=== PATIENT | female | born 1970 | race Caucasian/White ===

== ENCOUNTER 2024-11-19 11:01 | Emergency (ER) | payer SELFPAY ==
[2024-11-19 11:06] VITALS: BP 170/124
--- NOTE | 2024-11-19 11:26 | ED.GENMED ---
History of Present Illness
General
Chief Complaint: Alcohol Problem
Source: patient
Exam Limitations: none
Time Seen by Provider: 11/19/24 11:13
Nursing documentation reviewed up to this point in time: agreed with
History of Present Illness
History of Present Illness:
54-year-old female with cirrhosis, ascite, Upper GI bleed presents to the ED brought by Police for DUI. per protocol from Police pt was brought here due to very high alcohol level. Breathalyzer from place showed a 0.464
Patient arrives awake alert she appears mildly intoxicated but is able to give history. She is aware and admits to driving under the influence of alcohol. She was driving to work. She is tearful and upset that she was arrested. She has no
physical complaints
Past History
Past History
ED Past Medical History: HTN, Psychiatric (depression) and Other (Alcohol abuse, anemia, dysfunctional uterine bleeding)
ED Past Surgical History: Appendectomy, and Orthopedic (Left wrist)
Social History
Tobacco: Non-smoker
Alcohol: Chronic alcoholic
Drug: None
Personal:
Living: with roommate
Employment: Employed
Family History
Family History: Other (Noncontributory)
Review of Systems
Review of Systems
Allergies reviewed?: Yes
All Other Systems: ROS reviewed and negative except as documented in HPI and ROS
Constitutional: Reports no symptoms; Denies fever, fatigue or chills
Respiratory: Reports no symptoms
Cardiac: Reports no symptoms
ABD/GI: Reports no symptoms
Musculoskeletal: Reports no symptoms
Skin: Reports no symptoms
Neurological: Reports no symptoms
Psychiatric: Reports no symptoms
Phy Exam
General Physical Exam
General Presentation: no apparent distress
General age: appears stated age
General Skin: warm and dry
General Habitus: normal
General Mental: appears intoxicated
Cardiovascular Exam
Cardiovascular Exam: tachycardia
Pulmonary Exam
Pulmonary Exam: lungs clear and no respiratory distress
Neurological Exam
Neurological Exam: alert and oriented x3
Musculoskeletal Exam
Musculoskeletal Exam: full ROM
Skin Exam
Skin Exam: normal color and warm/dry
Psychiatric Exam
Psychiatric Exam: normal mood/affect
Scores
Withdrawal Assessment of Alcohol
Withdrawal Assessment Completed?: Not applicable
Course
Vital Signs
Initial and Last Documented VS:
Initial Vital Signs
Temp Pulse Resp BP Pulse Ox
98.6 F 114 17 170/124 99
11/19/24 11:06 11/19/24 11:06 11/19/24 11:06 11/19/24 11:06 11/19/24 11:06
Last Documented Vital Signs
Temp Pulse Resp BP Pulse Ox
97.6 F 127 17 139/90 99
11/19/24 16:20 11/19/24 16:20 11/19/24 11:06 11/19/24 16:20 11/19/24 16:20
MDM/Problems Addressed
MDM/Problems Addressed:
Patient is a 54-year-old female that was brought by police for a blood alcohol level of 0.464. Because this was the site elevated she needs to be brought to the ER. She presents awake alert she appears mildly intoxicated but is able to give
history. She admits to driving and is aware that she was pulled over because she was under the influence and intoxicated. She reports she was going to work.
She was offered B cares and declined. She reports she was hospitalized impatiently 4-5 times ' and it didn't work.'
Patient will need a ride home and initially plan to call her son but did not want him to be aware that she was here and so was waiting for her brother to get off of work. She presented tachycardic however was anxious and upset tearful crying and
upset that she was arrested and that she is in the situation. She was monitored here was stable awake alert no acute distress had no physical complaints.
Patient does as documented have above history of ascites liver issues however has not seen GI because she has no insurance and also report she has no family doctor. She was given family practice clinic
*Critical Care Note
Total Time (30-74mins, 75-104mins- exclusive of procedures): Not Applicable
ED Attending Note
-
Portions of this chart may have been created with voice recognition software.� Occasional wrong word or��sound alike� substitutions may have occurred due to the inherent limitations of voice recognition software.
Discharge Plan
Departure
Patient Disposition: Home (Routine Discharge)
Date of Disposition: 11/19/24
Time of Disposition: 12:01
Patient with high blood pressure during this ER visit?: Yes
Condition: Fair
Covid-19: Not Applicable
Discharge Problem:
Alcohol abuse
Instructions: Drug Misuse and Addiction (DC), Alcohol Use Disorder (DC)
Prescriptions:
No Action
furosemide 20 MG tablet
20 mg PO DAILY 0RF
melatonin 5 mg Tablet
10 mg PO HS PRN (Reason: insomnia)
Referrals:
[facility] [Provider Group]
[facility] [Outside]
Wiley Pratt MD [Family Provider] -
Activity Restrictions/Additional Instructions:
You were given information for family practice clinic. You may give them a call to schedule an appointment for regular family practice.
Interventions
Interventions:
*Risk Screen - Suicide Last Done: 11/19/24 11:06
*General Assessment Last Done: 11/19/24 11:06
*Neglect/Abuse Screening Last Done: 11/19/24 11:06
*ED- Fall Risk Assessment Last Done: 11/19/24 11:06
*ED COVID-19 Vaccine History Last Done: 11/19/24 11:06
ED- Neurological Assessment Last Done: 11/19/24 11:13
ED-Psychological Assessment Last Done: 11/19/24 11:14
Discharge Date and Time
Print Language: DANISH
[2024-11-19 11:43] VITALS: BP 158/109
[2024-11-19 16:20] VITALS: BP 139/90
== END 2024-11-19 20:28 | disposition home or self-care (01) ==
LOC: EMR 11:01
PROVIDERS: EMERGENCY PHYSICIAN Emergency Medicine; FAMILY PHYSICIAN Internal Medicine
DX: F10.10 Alcohol abuse, uncomplicated (principal); I10 Essential (primary) hypertension; K74.60 Unspecified cirrhosis of liver; Z90.49 Acquired absence of other specified parts of digestive tract; Z59.71 Insufficient health insurance coverage
CPT/HCPCS: 99281

== ENCOUNTER 2025-05-27 20:08 | Emergency (ER) | payer OTHER, SELFPAY ==
[2025-05-27 20:13] VITALS: BP 180/114
[2025-05-27] MEDS: NSS 1000 IV (20:27)
[2025-05-27 20:38] LABS: Hematocrit 35.3 % (37.0-47.0); Hemoglobin 12.7 g/dL (12.0-16.0); Mean Corp Hgb Conc. 36.0 g/dL (33.0-37.0); Mean Corpuscular Volume 89.4 fL (81.0-99.0); Nucleated Red Blood Cells % 0 %; Platelet Count 161 10^3/uL (130-400); Red Cell Dist. Width 12.0 % (11.5-14.5)
[2025-05-27 21:07] LABS: ALT (SGPT) 11 U/L (0-35); AST (SGOT) 34 U/L (14-36); Albumin 4.9 g/dl (3.5-5.0); Alkaline Phosphatase 50 U/L (38-126); Blood Urea Nitrogen 7 mg/dl (7-17); Calcium 9.9 mg/dl (8.4-10.2); Carbon Dioxide 20 mmol/L (22-30); Chloride 105 mmol/L (98-107); Glucose 98 mg/dl (70-99); Potassium 3.9 mmol/L (3.5-5.1); Sodium 139 mmol/L (135-145); Total Protein 8.3 g/dl (6.3-8.2); eGFR > 60.00
[2025-05-27 22:58] VITALS: BP 133/105
--- NOTE | 2025-05-28 02:06 | ED.GENMED ---
History of Present Illness
<Kenan Castro DO - Last Filed: 05/28/25 02:09>
General
Chief Complaint: Alcohol Problem
Source: patient and ambulance crew
Time Seen by Provider: 05/27/25 20:14
History of Present Illness
History of Present Illness:
Note:
CHIEF COMPLAINT(S)
Alcohol intoxication
HISTORY OF PRESENT ILLNESS
The patient is a 55-year-old female with a history of alcohol use disorder, who presented to the emergency department due to intoxication. She has been consuming vodka regularly at home. The patient reported drinking today but did not specify the
exact time of her last intake. She typically consumes only a couple of sips a day. The patient admitted to drinking every day and has a history of alcohol use treatment in the past, including rehabilitation. She was brought to the hospital by
emergency medical services, though she did not call them herself. At the time of evaluation, the patient was alert but tearful and confirmed being intoxicated.
Additional historians
EMS reports that she lives with her parents and that she was not known to them but reported that she was drinking alcohol
SOCIAL HISTORY
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 She denies the use of tobacco and illicit drugs but has an established pattern of alcohol use. She is involved in an alcohol support program, though details of her
participation and its legal context were not fully clarified in this encounter.
PHYSICAL EXAM
General: Alert, tearful, no acute distress. Appears intoxicated
Skin: Warm, well-perfused.
Cardiovascular: Heart rate regular, no edema observed.
Neurological: Moves all extremities; no focal neurological deficits noted.
Respiratory: Lungs clear to auscultation
Abdomen: Nontender nondistended
PROBLEM LIST
- Acute: Alcohol intoxication
PLAN
- Monitor the patients vital signs and mental status closely due to alcohol intoxication.
- Review laboratory results to assess the patients metabolic state and any potential complications from alcohol use.
- Discuss with the patient her interest in restarting rehabilitation or engaging more actively with alcohol support services.
- Offer a consultation with an alcohol specialist to provide further support and resources.
DIFFERENTIAL DIAGNOSIS
The Differential Diagnosis includes, in no particular order and is not limited to:
1. Alcohol intoxication
2. Alcohol withdrawal syndrome
3. Acute metabolic derangement
4. Anxiety disorders
5. Depression
6. Substance use disorder
7. Acute stress reaction
8. Dehydration
9. Delirium tremens
10. Chronic alcohol liver disease
Disposition:
SUMMARY OF ENCOUNTER
The patient, a 55-year-old female with a history of alcohol use disorder, presented to the emergency department with alcohol intoxication. She was found tearful upon arrival. Her laboratory work revealed an alcohol level of 427 mg/dL. There was no
indication for alcohol withdrawal at this time. The patient was monitored until she sobered up, at which point discharge was anticipated.
ASSESSMENT
The patient is experiencing alcohol intoxication without signs of alcohol withdrawal.
PLAN
- Monitor the patient until sober.
- Anticipate discharge once the patients condition stabilizes.
INDEPENDENT REVIEW OF LABS AND INTERPRETATION OF TESTS
My independent review of her lab work shows an alcohol level of 427 mg/dL. No anion gap was noted, and liver function tests were normal.
MEDICAL DECISION MAKING
-Complexity of Data Reviewed: Chronic conditions affecting care, including alcohol use disorder and history of prior alcohol use treatment. The differential diagnosis includes alcohol intoxication, alcohol withdrawal syndrome, acute metabolic
derangement, anxiety disorders, depression, substance use disorder, acute stress reaction, dehydration, delirium tremens, and chronic alcohol liver disease.
-Data:
Category 1:
Reviewed her laboratory results including alcohol level and liver function tests.
Category 3:
Discussion of Management: Care decisions were made based on monitoring the patients signs of sobriety and evaluating the necessity for discharge.
DIAGNOSIS
Alcohol intoxication (ICD-10: F10.129)
Update continue to monitor. Signed out to Dr. Tomlinson for reassessment after period of observation. Anticipate discharge
<Faustino Hylton, DO - Last Filed: 05/28/25 05:29>
History of Present Illness
History of Present Illness:
Note:
CHIEF COMPLAINT(S)
Alcohol intoxication
HISTORY OF PRESENT ILLNESS
The patient is a 55-year-old female with a history of alcohol use disorder, who presented to the emergency department due to intoxication. She has been consuming vodka regularly at home. The patient reported drinking today but did not specify the
exact time of her last intake. She typically consumes only a couple of sips a day. The patient admitted to drinking every day and has a history of alcohol use treatment in the past, including rehabilitation. She was brought to the hospital by
emergency medical services, though she did not call them herself. At the time of evaluation, the patient was alert but tearful and confirmed being intoxicated.
Additional historians
EMS reports that she lives with her parents and that she was not known to them but reported that she was drinking alcohol
SOCIAL HISTORY
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 She denies the use of tobacco and illicit drugs but has an established pattern of alcohol use. She is involved in an alcohol support program, though details of her
participation and its legal context were not fully clarified in this encounter.
PHYSICAL EXAM
General: Alert, tearful, no acute distress. Appears intoxicated
Skin: Warm, well-perfused.
Cardiovascular: Heart rate regular, no edema observed.
Neurological: Moves all extremities; no focal neurological deficits noted.
Respiratory: Lungs clear to auscultation
Abdomen: Nontender nondistended
PROBLEM LIST
- Acute: Alcohol intoxication
PLAN
- Monitor the patients vital signs and mental status closely due to alcohol intoxication.
- Review laboratory results to assess the patients metabolic state and any potential complications from alcohol use.
- Discuss with the patient her interest in restarting rehabilitation or engaging more actively with alcohol support services.
- Offer a consultation with an alcohol specialist to provide further support and resources.
DIFFERENTIAL DIAGNOSIS
The Differential Diagnosis includes, in no particular order and is not limited to:
1. Alcohol intoxication
2. Alcohol withdrawal syndrome
3. Acute metabolic derangement
4. Anxiety disorders
5. Depression
6. Substance use disorder
7. Acute stress reaction
8. Dehydration
9. Delirium tremens
10. Chronic alcohol liver disease
Disposition:
SUMMARY OF ENCOUNTER
The patient, a 55-year-old female with a history of alcohol use disorder, presented to the emergency department with alcohol intoxication. She was found tearful upon arrival. Her laboratory work revealed an alcohol level of 427 mg/dL. There was no
indication for alcohol withdrawal at this time. The patient was monitored until she sobered up, at which point discharge was anticipated.
ASSESSMENT
The patient is experiencing alcohol intoxication without signs of alcohol withdrawal.
PLAN
- Monitor the patient until sober.
- Anticipate discharge once the patients condition stabilizes.
INDEPENDENT REVIEW OF LABS AND INTERPRETATION OF TESTS
My independent review of her lab work shows an alcohol level of 427 mg/dL. No anion gap was noted, and liver function tests were normal.
MEDICAL DECISION MAKING
-Complexity of Data Reviewed: Chronic conditions affecting care, including alcohol use disorder and history of prior alcohol use treatment. The differential diagnosis includes alcohol intoxication, alcohol withdrawal syndrome, acute metabolic
derangement, anxiety disorders, depression, substance use disorder, acute stress reaction, dehydration, delirium tremens, and chronic alcohol liver disease.
-Data:
Category 1:
Reviewed her laboratory results including alcohol level and liver function tests.
Category 3:
Discussion of Management: Care decisions were made based on monitoring the patients signs of sobriety and evaluating the necessity for discharge.
DIAGNOSIS
Alcohol intoxication (ICD-10: F10.129)
Update continue to monitor. Signed out to Dr. Hylton for reassessment after period of observation. Anticipate discharge
Past History
<Kenan Castro DO - Last Filed: 05/28/25 02:09>
Past History
ED Past Medical History: HTN, Psychiatric (depression) and Other (Alcohol abuse, anemia, dysfunctional uterine bleeding)
ED Past Surgical History: Appendectomy, and Orthopedic (Left wrist)
Social History
Tobacco: Non-smoker
Alcohol: Chronic alcoholic
Drug: None
Personal:
Living: with roommate
Employment: Employed
Family History
Family History: Other (Noncontributory)
Phy Exam
<Faustino Hylton, DO - Last Filed: 05/28/25 05:29>
Physical Exam
Physical Exam:
.
Scores
<Faustino Hylton, DO - Last Filed: 05/28/25 05:29>
Withdrawal Assessment of Alcohol
Withdrawal Assessment Completed?: No
Course
<Kenan Castro, DO - Last Filed: 05/28/25 02:09>
Orders/Labs/Results
Orders:
Orders
05/27/25 20:16
ED Special Safety Observation ONCE
Observation level: Intermittent Observation
05/27/25 20:23
0.9% Sodium Chloride 1000 ml [Nss] 1,000 ml IV BOLUS
05/27/25 20:26
Alcohol Urgent
Complete Blood Count/With Diff Urgent
Comprehensive Metabolic Panel Urgent
05/27/25 20:58
Crisis Consult Urgent
Reason for Consult: SI
Comment: Will notify when no longer intoxicated
Abnormal Lab Results
05/27/25
20:26
WBC 4.1 L 10^3/uL
(4.8-10.8)
RBC 3.95 L 10^6/uL
(4.20-5.40)
Hct 35.3 L %
(37.0-47.0)
MCH 32.2 H pg
(27.0-31.0)
Absolute Lymphs (auto) 1.0 L 10^3/uL
(1.2-3.4)
Carbon Dioxide 20 L mmol/L
(22-30)
Total Protein 8.3 H g/dl
(6.3-8.2)
Alcohol, Quantitative 427 H* mg/dl
05/27/25 20:26
05/27/25 20:26
Vital Signs
Initial and Last Documented VS:
Initial Vital Signs
Temp Pulse Resp BP Pulse Ox
98 F 120 18 180/114 99
05/27/25 20:13 05/27/25 20:13 05/27/25 20:13 05/27/25 20:13 05/27/25 20:13
Last Documented Vital Signs
Temp Pulse Resp BP Pulse Ox
98 F 82 15 134/102 96
05/27/25 20:13 05/28/25 04:30 05/28/25 04:30 05/28/25 03:29 05/28/25 02:09
<Faustino Hylton, DO - Last Filed: 05/28/25 05:29>
Orders/Labs/Results
Orders:
Orders
05/27/25 20:16
ED Special Safety Observation ONCE
Observation level: Intermittent Observation
05/27/25 20:23
0.9% Sodium Chloride 1000 ml [Nss] 1,000 ml IV BOLUS
05/27/25 20:26
Alcohol Urgent
Complete Blood Count/With Diff Urgent
Comprehensive Metabolic Panel Urgent
05/27/25 20:58
Crisis Consult Urgent
Reason for Consult: SI
Comment: Will notify when no longer intoxicated
Abnormal Lab Results
05/27/25
20:26
WBC 4.1 L 10^3/uL
(4.8-10.8)
RBC 3.95 L 10^6/uL
(4.20-5.40)
Hct 35.3 L %
(37.0-47.0)
MCH 32.2 H pg
(27.0-31.0)
Absolute Lymphs (auto) 1.0 L 10^3/uL
(1.2-3.4)
Carbon Dioxide 20 L mmol/L
(22-30)
Total Protein 8.3 H g/dl
(6.3-8.2)
Alcohol, Quantitative 427 H* mg/dl
05/27/25 20:26
05/27/25 20:26
Vital Signs
Initial and Last Documented VS:
Initial Vital Signs
Temp Pulse Resp BP Pulse Ox
98 F 120 18 180/114 99
05/27/25 20:13 05/27/25 20:13 05/27/25 20:13 05/27/25 20:13 05/27/25 20:13
Last Documented Vital Signs
Temp Pulse Resp BP Pulse Ox
98 F 82 15 134/102 96
05/27/25 20:13 05/28/25 04:30 05/28/25 04:30 05/28/25 03:29 05/28/25 02:09
<Kenan Castro, DO - Last Filed: 05/28/25 02:09>
*Pulse Oximetry
SaO2: 96
Oxygen Mode of Delivery: Room air
Patient hypoxic: no
*Hand Spray Operator Interpretation
Rate: tachycardiac
Interpretation: abnormal
Rhythm: sinus
*Critical Care Note
Total Time (30-74mins, 75-104mins- exclusive of procedures): Not Applicable
<Faustino Hylton, DO - Last Filed: 05/28/25 05:29>
Update Note
Update Note:
Patient received in signout from Dr. Castro. No indication for admission. Patient declines further rehab at this time stable for discharge home when she is able to obtain a ride with a responsible adult.
ED Attending Note
<Kenan Castro DO - Last Filed: 05/28/25 02:09>
-
Portions of this chart may have been created with voice recognition software.� Occasional wrong word or��sound alike� substitutions may have occurred due to the inherent limitations of voice recognition software.
Discharge Plan
Departure
Patient Disposition: Home (Routine Discharge)
Date of Disposition: 05/27/25
Time of Disposition: 22:11
Patient with high blood pressure during this ER visit?: Yes
Condition: Good
Discharge Problem:
Alcohol abuse
Instructions: Alcohol Use Disorder (DC), BLOOD PRESSURE
Prescriptions:
No Action
furosemide 20 MG tablet
20 mg PO DAILY 0RF
melatonin 5 mg Tablet
10 mg PO HS PRN (Reason: insomnia)
Referrals:
Wiley Pratt MD [Family Provider, Internal Medicine] - Call in 1-3 days for appt
Interventions
Interventions:
*Risk Screen - Suicide Last Done: 05/27/25 20:16
*General Assessment Last Done: 05/27/25 20:16
*Neglect/Abuse Screening Last Done: 05/27/25 20:16
*ED- Fall Risk Assessment Last Done: 05/27/25 20:16
*ED COVID-19 Vaccine History Last Done: 05/27/25 20:16
ED- Neurological Assessment Last Done: 05/27/25 20:25
ED-Psychological Assessment Last Done: 05/27/25 20:25
Discharge Date and Time
Print Language: FRENCH
[2025-05-28 03:29] VITALS: BP 134/102
[2025-05-28 05:52] VITALS: BP 129/82
[2025-05-28 09:47] VITALS: BP 122/77
== END 2025-05-28 09:48 | disposition home or self-care (01) ==
LOC: EMR 20:08
PROVIDERS: EMERGENCY PHYSICIAN Emergency Medicine; FAMILY PHYSICIAN Internal Medicine
DX: F10.129 Alcohol abuse with intoxication, unspecified (principal); Y90.8 Blood alcohol level of 240 mg/100 ml or more; I10 Essential (primary) hypertension
CPT/HCPCS: 96360; 99284; 80053; 82077; 85025